=== PATIENT | male | born 1970 | race Caucasian/White ===

== ENCOUNTER 2018-04-28 10:03 | Day surgery (SDC) | payer BC ==
[2018-04-28] MEDS ORDERED: LACTATED RINGERS 1,000 ML IV ONE (10:14)
[2018-04-28] MEDS ORDERED: fentaNYL 250 MCG/5 ML VIAL IVP ONE (11:25)
[2018-04-28] MEDS ORDERED: MIDAZOLAM 2 MG/2 ML VIAL IVP ONE (11:25)
[2018-04-28 12:01] VITALS: BP 128/91
== END 2018-04-28 10:04 | disposition home or self-care (01) ==
LOC: SDS 10:03
PROVIDERS: ATTEND Surgery
PROC: 0DBL8ZX Excision of Transverse Colon, Via Natural or Artificial Opening Endoscopic, Diagnostic (ICD-10-PCS; principal; 2018-04-28 11:15)
DX: Z12.11 Encounter for screening for malignant neoplasm of colon (principal); D12.3 Benign neoplasm of transverse colon; K64.8 Other hemorrhoids; I10 Essential (primary) hypertension
CPT/HCPCS: 45380; J3010; J7120; 88305